=== PATIENT | female | born 1930 | race Caucasian/White ===

== ENCOUNTER 2017-07-24 10:54 | Inpatient (IN) | payer MEDICARE, MEDICAID ==
[2017-07-23 20:00] VITALS: BP 138/71
[~2017-07-24] VITALS: Ht 172.7 cm; Wt 54.0 kg
[~2017-07-24 10:54] MED LIST: FERR1TAB44 PO; LEVO750T21 PO; METR500T PO
--- NOTE | 2017-07-24 11:00 | NUR ---
bonita 878 from home c/o back pain after scrubbing floor last night. NAD noted, VSS, resp even and unlabored, pt was put on monitor, waiting for md raines.
[2017-07-24 12:05] LABS: BASOPHILS % (AUTO) 0.2 % (0.0-2.0); EOSINOPHILS % (AUTO) 0.1 % (0.0-6.0); HEMATOCRIT 35 % (33-45); HEMOGLOBIN 11.6 g/dL (11.5-14.8); LYMPHOCYTES # (AUTO) 0.9 /CMM (0.8-4.8); LYMPHOCYTES % (AUTO) 9.1 % (20.0-44.0); MEAN CORPUSCULAR HGB CONC 34 g/dl (31.0-36.0); MEAN CORPUSCULAR VOLUME 87 fL (82-100); MONOCYTES # (AUTO) 0.7 /CMM (0.1-1.30); MONOCYTES % (AUTO) 6.9 % (2.0-12.0); NEUTROPHILS # (AUTO) 7.9 /CMM (1.8-8.9); NEUTROPHILS % (AUTO) 83.7 % (43.0-81.0); PLATELET COUNT (AUTO) 225 /CMM (150-450); RDW COEFFICIENT OF VARIATION 12.2 (11.5-15.0); RED BLOOD CELL COUNT(AUTO) 3.98 MIL/uL (4.0-5.2); WHITE BLOOD COUNT (AUTO) 9.5 K/uL (4.3-11.0)
[2017-07-24] MEDS ORDERED: NAPROXEN 250 MG TABLET ONE (12:07)
--- NOTE | 2017-07-24 12:08 | NUR ---
urine sent to lab
[2017-07-24 12:15] LABS: CALCIUM, SERUM 8.5 mg/dL (8.5-10.1); CARBON DIOXIDE 30 mmol/L (21-32); CHLORIDE 102 mmol/L (98-107); GLUCOSE 109 mg/dL (74-106); POTASSIUM 4.4 mmol/L (3.5-5.1); SODIUM SERUM 136 mmol/L (136-145); UREA NITROGEN, BLOOD 20 mg/dL (7-18)
[2017-07-24] MEDS: NAPROXEN 500 MG TABLET PO SCH ×2 (12:16→20:53)
[2017-07-24 12:59] LABS: APPEARANCE,URINE CLEAR (CLEAR); BILIRUBIN,URINE NEGATIVE (NEGATIVE); BLOOD, URINE NEGATIVE Ery/uL (NEGATIVE); COLOR,URINE YELLOW (YELLOW); KETONES,URINE NEGATIVE (NEGATIVE); LEUKOCYTE ESTERASE ,URINE NEGATIVE (NEGATIVE); NITRITE, URINE NEGATIVE (NEGATIVE); PROTEIN,URINE NEGATIVE (NEGATIVE); UGLUCOSE NEGATIVE (NEGATIVE); UROBILINOGEN,URINE 0.2 EU/dL (0.2)
[2017-07-24] MEDS ORDERED: ACETAMINOPHEN ES 500 MG TABLET ONE (13:44)
[2017-07-24] MEDS ORDERED: ACETAMINOPHEN ES 500 MG TABLET PO ONE (14:00)
[2017-07-24 16:41] LABS: BAND % (MANUAL) 3 % (0.0-5.0); LYMPHOCYTES % (MANUAL) 12 % (16-48); MONOCYTES % (MANUAL) 4 % (0-11.0); NEUTROPHILS % (MANUAL) 81 (42-76)
[2017-07-24] MEDS ORDERED: Z GUARD REMEDY 2 OZ OINT TP PRN (17:00)
[2017-07-24] MEDS ORDERED: ONDANSETRON HCL/PF 4 MG/2 ML VIAL IVP PRN (17:00)
[2017-07-24] MEDS ORDERED: ZOLPIDEM TARTRATE 5 MG TABLET PO PRN (17:00)
[2017-07-24] MEDS ORDERED: ACETAMINOPHEN 325 MG TABLET PO PRN (17:00)
[2017-07-24] MEDS ORDERED: MAGNESIUM HYDROXIDE 30 ML UDC PO PRN (17:00)
[2017-07-24] MEDS ORDERED: MAG HYDROX/AL HYDROX/SIMETH 30 ML UDC PO PRN (17:00)
[2017-07-24] MEDS ORDERED: OXYB5TAB PO (17:08)
--- NOTE | 2017-07-24 17:40 | NUR ---
PT. ADMITTED TO . 312-1,DTR. PRESENT.QUESTIONS FOR ADMIT ASKED OF PT. AND DTR.VS STABLE.
[2017-07-24 18:00] VITALS: BP 137/68
--- NOTE | 2017-07-24 19:45 | NUR ---
MS/RN OPENING NOTES PT RECEIVED AWAKE, RESTING COMFORTABLY IN BED. A/OX3. JUST FINISHED DINNER. ON ROOM AIR, BREATHING EVEN AND UNLABORED. DENIES SOB AND BACK PAIN AT THIS TIME. STATES SHE FEELS COMFORTABLE. BILATERAL HEARING AIDS IN PLACE. IV TO LAC PATENT AND INTACT. ORIENTED PT TO ROOM AND CALL LIGHT. BED IN LOW/LOCKED POSITION WITH CALL LIGHT IN REACH AND SIDE RAILS UPX2. WILL CONTINUE TO MONITOR
[2017-07-24 20:00] VITALS: BP 138/71
--- NOTE | 2017-07-25 05:24 | NUR ---
MS/RN NOTES PT C/O OF LOWER BACK PAIN. SPOKE TO DR. VILLALOBOS AND NOTIFIED HIM THAT PT HAS A CODEINE ALLERGY, DOES NOT REMEMBER WHAT REACTION SHE HAD TO IT DUE TO IT BEING SO LONG AGO. MD MADE AWARE THAT NAPROXEN GIVEN IN ER WAS EFFECTIVE. PER MD, GIVE NORCO 5/325 DESPITE CODEINE ALLERGY. SPOKE TO PHARMACY TO VERIFY NORCO AND INFORMED THEM THAT MD SAID OKAY TO GIVE DESPITE CODEINE ALLERGY. PER PHARMACY, REMOVE CODEINE ALLERGY FROM PT'S CHART SO THAT THEY CAN VERIFY THE ORDER.
[2017-07-25] MEDS: HYDROCODONE/APAP 5/325MG 1 EACH TABLET PO PRN ×3 (05:50→17:50)
--- NOTE | 2017-07-25 07:01 | NUR ---
MS/RN CLOSING NOTES PT RESTING COMFORTABLY IN BED. A/OX3. ON ROOM AIR, BREATHING EVEN AND UNLABORED. DENIES SOB AND PAIN AT THIS TIME. HOT PACKS AND NORCO EFFECTIVE. ASSISTED WITH TURNING/REPOSITIONING TOLERATED. BILATERAL HEARING AIDS IN CUP AT BEDSIDE. IV TO LAC PATENT AND INTACT. NO SIGNIFICANT CHANGES OVERNIGHT. BED REMAINS IN LOW/LOCKED POSITION WITH CALL LIGHT IN REACH. SIDE RAILS UPX2. WILL ENDORSE TO DAY SHIFT RN NATALIE.
--- NOTE | 2017-07-25 07:13 | NUR ---
MS RN OPENING NOTE RECEIVED BEDSIDE SBAR REPORT ON THE PATIENT. PATIENT IS A/O X4, COOPERATIVE. AWAKE AND RESPONSIVE IN BED. BED IS LOCKED IN LOWEST POSITION, SIDE RAILS UP X2. PATIENT IS AMBULATORY, ORIENTED TO OWN ABILITIES. CURRENTLY UNABLE TO AMBULATE DUE TO BACK PAIN AGGRAVATED BY AMBULATION AND MOVEMENT. INDEPENDENT WITH BED MOBILITY. REPORTS PAIN BEING WELL CONTROLLED WITH ANALGESIC ADMINISTERED BY THE BILLET GRINDER NURSE. CHEST IS RISING EQUALLY BILATERALLY. SPO2 93% ON ROOM AIR. CALL LIGHT WITHIN REACH. EDUCATED TO CALL FOR ASSISTANCE USING THE CALL LIGHT AND VERBALIZED UNDERSTANDING. WILL CONTINUE TO ASSESS/MONITOR THROUGHOUT THE SHIFT.
[2017-07-25 07:50] LABS: BASOPHILS % (AUTO) 0.2 % (0.0-2.0); EOSINOPHILS % (AUTO) 0.5 % (0.0-6.0); HEMATOCRIT 35 % (33-45); HEMOGLOBIN 11.9 g/dL (11.5-14.8); LYMPHOCYTES % (AUTO) 12.3 % (20.0-44.0); MEAN CORPUSCULAR HGB CONC 34 g/dl (31.0-36.0); MEAN CORPUSCULAR VOLUME 88 fL (82-100); MONOCYTES # (AUTO) 0.8 /CMM (0.1-1.30); MONOCYTES % (AUTO) 9.8 % (2.0-12.0); NEUTROPHILS # (AUTO) 6.2 /CMM (1.8-8.9); NEUTROPHILS % (AUTO) 77.2 % (43.0-81.0); PLATELET COUNT (AUTO) 195 /CMM (150-450); RDW COEFFICIENT OF VARIATION 12.7 (11.5-15.0); RED BLOOD CELL COUNT(AUTO) 3.95 MIL/uL (4.0-5.2)
[2017-07-25 08:00] VITALS: BP 113/64
[2017-07-25 08:35] LABS: CHOLESTEROL 207 mg/dL (<200); HDL CHOLESTEROL 53 mg/dL (40-60); LDL 141 mg/dL (0-99); TRIGLYCERIDES 59 mg/dL (30-150)
[2017-07-25 08:37] LABS: CALCIUM, SERUM 8.4 mg/dL (8.5-10.1); CARBON DIOXIDE 28 mmol/L (21-32); CHLORIDE 102 mmol/L (98-107); GLUCOSE 107 mg/dL (74-106); PHOSPHORUS 3.2 mg/dL (2.5-4.9); POTASSIUM 4.3 mmol/L (3.5-5.1); SODIUM SERUM 139 mmol/L (136-145); UREA NITROGEN, BLOOD 19 mg/dL (7-18)
--- NOTE | 2017-07-25 09:10 | NUR ---
PER DR HANNON ORDER PAIN MANAGEMENT CONSULT
--- NOTE | 2017-07-25 10:00 | NUR ---
CAME TO REPOSITION THE PATIENT. PATIENT REFUSED TO BE REPOSITIONED STATING THAT PAIN IS AGGREVATED BY REPOSITIONING.
--- NOTE | 2017-07-25 13:25 | NUR ---
PATIENT REPORTED SEVERE PAIN IN LOW BACK. ANALGESIC PROVIDED PRESCRIBED.
--- NOTE | 2017-07-25 14:12 | NUR ---
PATIENT REFUSES TO BE REPOSITIONED STATING THAT PAIN IS AGGRAVATED BY REPOSITIONING.
[2017-07-25 16:00] VITALS: BP 115/61
--- NOTE | 2017-07-25 19:08 | NUR ---
MS RN CLOSING NOTE PATIENT IS A/O X4, COOPERATIVE. ASLEEP, EASILY AWAKEN IN BED. BED IS LOCKED IN LOWEST POSITION, SIDE RAILS UP X2. PATIENT IS AMBULATORY, ORIENTED TO OWN ABILITIES. CURRENTLY UNABLE TO AMBULATE DUE TO BACK PAIN AGGRAVATED BY AMBULATION AND MOVEMENT. REFUSED TO BE REPOSITIONED THROUGHOUT THE SHIFT. INDEPENDENT WITH BED MOBILITY. REPORTS PAIN BEING WELL CONTROLLED WITH ANALGESIC ADMINISTERED. CHEST IS RISING EQUALLY BILATERALLY. SPO2 94% ON ROOM AIR. CALL LIGHT WITHIN REACH. EDUCATED TO CALL FOR ASSISTANCE USING THE CALL LIGHT AND VERBALIZED UNDERSTANDING. WILL ENDORSE TO THE CORN HUSK BALER NURSE FOR NATALIE.
--- NOTE | 2017-07-25 19:30 | NUR ---
MS/RN OPENING NOTES PT RECEIVED ASLEEP, AROUSABLE TO NAME AND LIGHT TOUCH. A/OX3. ON ROOM AIR, BREATHING EVEN AND UNLABORED. DENIES SOB AND PAIN AT THIS TIME. NORCO HAS BEEN EFFECTIVE DURING SHIFT. ABLE TO MOVE SLIGHTLY ON HER OWN, MOVEMENT EXACERBATES BACK PAIN/SPASMS. IV TO LAC PATENT AND INTACT. WILL RESUME EATING DINNER. CONSULT WITH DR BINGHAM TOMORROW FOR PAIN MANAGEMENT. DC PLANNING TO SNF OR REHAB TOMORROW. BED IN LOW/LOCKED POSITION WITH CALL LIGHT IN REACH. SIDE RAILS UPX2. WILL CONTINUE TO MONITOR
[2017-07-25 20:00] VITALS: BP 132/70
--- NOTE | 2017-07-25 21:00 | NUR ---
MS/RN NOTES REPOSITIONED PT TO RIGHT SIDE. HEATING PAD PROVIDED TO LOWER BACK.
--- NOTE | 2017-07-26 06:51 | NUR ---
MS/RN CLOSING NOTES PT RESTING COMFORTABLY IN BED. A/OX3. ON ROOM AIR, BREATHING EVEN AND UNLABORED. ABLE TO MAKE NEEDS KNOWN. BILATERAL HEARING AIDS IN DENTURE CUP AT BEDSIDE. TURNED/REPOSITIONED 4X DURING SHIFT. PT RELUCTANT TO TURN DUE TO BACK SPASMS. ENCOURAGED TOLERATED. MEPILEX APPLIED TO SACRUM FOR PROTECTION. IV TO LAC PATENT AND INTACT. HEATING PADS PROVIDED FOR PAIN. PT SLEPT WELL DURING THE NIGHT, HOWEVER HAD ONE EPISODE OF "HALLUCINATIONS" AND REFUSED NORCO THEREAFTER. PT REPOSITIONED, HEATING PAD PROVIDED AND MADE COMFORTABLE, ABLE TO SLEEP REST OF THE SHIFT WITHOUT PAIN. CONSULT WITH DR. BINGHAM TODAY. D/C PLANNING TO SNF OR REHAB. BED IN LOW/LOCKED POSITION WITH CALL LIGHT IN REACH. SIDE RAILS UPX2 AND BED ALARM ON FOR SAFETY. WILL CONTINUE TO MONITOR
[2017-07-26 06:58] LABS: CALCIUM, SERUM 8.5 mg/dL (8.5-10.1); CARBON DIOXIDE 29 mmol/L (21-32); CHLORIDE 102 mmol/L (98-107); CREATININE 0.9 mg/dL (0.6-1.3); GLUCOSE 105 mg/dL (74-106); POTASSIUM 4.4 mmol/L (3.5-5.1); SODIUM SERUM 137 mmol/L (136-145); UREA NITROGEN, BLOOD 20 mg/dL (7-18)
--- NOTE | 2017-07-26 07:49 | NUR ---
MS RN OPENING NOTES Patient was seen sleeping comfortably in bed, awakes to name, breathing is nonlabored on RA, no signs of acute distress. Peripheral IV in left AC 20g SL. Bed is in low/locked position, two side rails up, call nice within reach. Will continue to monitor.
[2017-07-26 07:50] LABS: BASOPHILS % (AUTO) 0.2 % (0.0-2.0); EOSINOPHILS % (AUTO) 0.5 % (0.0-6.0); HEMATOCRIT 34 % (33-45); HEMOGLOBIN 11.9 g/dL (11.5-14.8); LYMPHOCYTES # (AUTO) 1.1 /CMM (0.8-4.8); LYMPHOCYTES % (AUTO) 11.3 % (20.0-44.0); MEAN CORPUSCULAR HGB CONC 35 g/dl (31.0-36.0); MEAN CORPUSCULAR VOLUME 86 fL (82-100); MONOCYTES # (AUTO) 0.6 /CMM (0.1-1.30); MONOCYTES % (AUTO) 6.9 % (2.0-12.0); NEUTROPHILS # (AUTO) 7.7 /CMM (1.8-8.9); NEUTROPHILS % (AUTO) 81.1 % (43.0-81.0); PLATELET COUNT (AUTO) 184 /CMM (150-450); RDW COEFFICIENT OF VARIATION 12.6 (11.5-15.0); RED BLOOD CELL COUNT(AUTO) 3.95 MIL/uL (4.0-5.2); WHITE BLOOD COUNT (AUTO) 9.4 K/uL (4.3-11.0)
[2017-07-26 08:00] VITALS: BP 146/79
[2017-07-26] MEDS ORDERED: NAPROXEN 500 MG TABLET PO PRN (14:00)
--- NOTE | 2017-07-26 15:30 | NUR ---
MS RN NOTE - temperature Patient was found to have a temperature of 102.5 F (checked twice). Administered prn naproxen and cooling measures. Notified Dr. Hubbard and received order for blood cultures. Will reassess patient in one hour.
[2017-07-26 16:00] VITALS: BP 152/89
[2017-07-26] MEDS ORDERED: NAPROXEN 500 MG TABLET PO SCH (17:00)
--- NOTE | 2017-07-26 17:00 | NUR ---
MS RN NOTE - Temp reassessment Patient temperature 102.0 F at 1430. Continued cooling measures. Reassessed temperature 30 minutes later at 1700, temperature 101.3 F. Will administer prn Tylenol.
--- NOTE | 2017-07-26 18:20 | NUR ---
MS RN CLOSING NOTES Patient is resting comfortably in bed AAOx4, breathing on RA nonlabored/no SOB, no signs of acute distress. Temperature rechecked - dropped to 99.3 F (from 102; see previous notes) after administration of Tylenol; blood cultures are pending. Patient's back pain is currently well controlled on naproxen, heat therapy, and minimal activity/movement. Patient is still due for consult with pain management, as well as arrangements for rehab or SNF to increase functional ability. Patient has left AC IV 20g SL. Bed is in low/locked position, two side rails up, call nice within reach. All treatments and orders carried out. Patient care to be endorsed to product builder nurse.
--- NOTE | 2017-07-26 19:12 | NUR ---
MS/RN OPENING NOTES PT RECEIVED AWAKE, RESTING COMFORTABLY IN BED. ON ROOM AIR, BREATHING EVEN AND UNLABORED. DENIES SOB OR PAIN AT THIS TIME, LONG SHE IS LAYING STILL. IV TO LAC PATENT AND INTACT. PT WITH TEMPERATURE TODAY, WILL MONITOR FOR FEVERS. BED IN LOW/LOCKED POSITION WITH CALL LIGHT IN REACH. SIDE RAILS UPX2 WITH BED ALARM ON FOR SAFETY. WILL CONTINUE TO MONITOR
--- NOTE | 2017-07-26 19:15 | NUR ---
MS/RN NOTES DR. BINGHAM AT BEDSIDE TO ASSESS PATIENT
[2017-07-26 20:00] VITALS: BP 143/76
[2017-07-26] MEDS ORDERED: HYDROCODONE/APAP 5/325MG 1 EACH TABLET PO PRN (21:00)
[2017-07-26] MEDS: ACETAMINOPHEN 325 MG TABLET PO SCH (23:32)
[2017-07-27] MEDS: ACETAMINOPHEN 325 MG TABLET PO SCH ×3 (06:51→20:48)
--- NOTE | 2017-07-27 07:11 | NUR ---
MS/RN CLOSING NOTES PT ASLEEP, EASILY AROUSABLE TO NAME. A/OX4. BILATERAL HEARING AIDS AT BEDSIDE. IV TO LAC PATENT AND INTACT. SCHEDULED TYLENOL ADMINISTERED LATE, PT HAD TYLENOL AT APPROX 1700 FOR TEMPERATURE. TOO CLOSE TO ADMINISTER SCHEDULED. PAIN MANAGED WELL WITH TYLENOL. HAS MORE MOVEMENT IN BED. KEPT PT COMFORTABLE DURING SHIFT. ALL NEEDS MET. TURNED/REPOSITIONED Q2H. BED IN LOW/LOCKED POSITION WITH CALL LIGHT IN REACH. SIDE RAILS UPX2. ENDORSED TO DAY SHIFT RACHANA ESTRADA.
[2017-07-27 08:00] VITALS: BP 119/67
--- NOTE | 2017-07-27 08:00 | NUR ---
MS RN OPENING NOTES Patient was seen resting in bed AAOx4, breathing comfortably on RA with no signs of acute distress. Patient's left AC IV (SL) appeared to be coming out, therefore it was removed. Heat pack was applied to patient's lower back; patient does not want pain medication at this time. Bed is in low/locked position, two side rails up, call nice within reach. Will continue to monitor.
[2017-07-27 13:27] LABS: BASOPHILS % (AUTO) 0.1 % (0.0-2.0); CALCIUM, SERUM 8.7 mg/dL (8.5-10.1); CARBON DIOXIDE 32 mmol/L (21-32); CHLORIDE 103 mmol/L (98-107); EOSINOPHILS % (AUTO) 0.2 % (0.0-6.0); GLUCOSE 175 mg/dL (74-106); HEMATOCRIT 36 % (33-45); HEMOGLOBIN 11.8 g/dL (11.5-14.8); LYMPHOCYTES # (AUTO) 0.6 /CMM (0.8-4.8); LYMPHOCYTES % (AUTO) 7.2 % (20.0-44.0); MEAN CORPUSCULAR HGB CONC 33 g/dl (31.0-36.0); MEAN CORPUSCULAR VOLUME 88 fL (82-100); MONOCYTES # (AUTO) 0.4 /CMM (0.1-1.30); NEUTROPHILS # (AUTO) 7.6 /CMM (1.8-8.9); NEUTROPHILS % (AUTO) 87.5 % (43.0-81.0); PLATELET COUNT (AUTO) 214 /CMM (150-450); POTASSIUM 3.7 mmol/L (3.5-5.1); RDW COEFFICIENT OF VARIATION 13.2 (11.5-15.0); RED BLOOD CELL COUNT(AUTO) 4.07 MIL/uL (4.0-5.2); SODIUM SERUM 141 mmol/L (136-145); UREA NITROGEN, BLOOD 23 mg/dL (7-18); WHITE BLOOD COUNT (AUTO) 8.6 K/uL (4.3-11.0)
[2017-07-27 14:15] LABS: APPEARANCE,URINE CLOUDY (CLEAR); BILIRUBIN,URINE NEGATIVE (NEGATIVE); BLOOD, URINE TRACE-INTA Ery/uL (NEGATIVE); COLOR,URINE YELLOW (YELLOW); KETONES,URINE NEGATIVE (NEGATIVE); LEUKOCYTE ESTERASE ,URINE 1+ (NEGATIVE); NITRITE, URINE POSITIVE (NEGATIVE); PROTEIN,URINE TRACE mg/dl (NEGATIVE); UGLUCOSE NEGATIVE (NEGATIVE); UROBILINOGEN,URINE 0.2 EU/dL (0.2)
[2017-07-27 16:00] VITALS: BP 127/67
[2017-07-27 17:19] LABS: BACTERIA,URINE Many /HPF (None Seen); RBC,URINE 0-2 /HPF (0-2); SQUAMOUS EPITHELIAL CELL,UR Few /HPF (None Seen); WBC,URINE 20-25 /HPF (0-3)
--- NOTE | 2017-07-27 19:00 | NUR ---
MS RN CLOSING NOTES Patient is comfortable in bed AAOx4, breathing on RA with no SOB, no signs of acute distress, vitals WNL. Patient was seen this afternoon by Dr. Jones from Pain Management - Tylenol q8h, Celebrex as needed, heat therapy, PT tomorrow. Bed is low/locked position, two side rails up, call nice within reach. All patient needs and orders carried out. Patient care to be endorsed to predatory game hunter nurse.
--- NOTE | 2017-07-27 19:20 | NUR ---
MS/RN NOTES RECEIVED PT. LYING IN BED. PT. IS RESTING COMFORTABLY WITH EYES CLOSED. PT. IS EASILY AROUSABLE TO NAME. AWAKE, ALERT AND ORIENTED X4. BREATHING EVEN AND UNLABORED ON ROOM AIR. NO SOB, RESPIRATORY DISTRESS OR COMPLAINTS OF PAIN NOTED AT THIS TIME. PT. WITH RIGHT FOREARM 22 GAUGE IV SALINE LOCK PRESENT, PATENT AND INTACT. BED LOCKED AND IN LOWEST POSITION, SIDE RAILS UP X3, BED ALARM ON, CALL LIGHT WITHIN REACH, WILL CONTINUE TO MONITOR.
[2017-07-27 20:00] VITALS: BP 173/100
--- NOTE | 2017-07-27 22:05 | NUR ---
MS/RN NOTES CALLED [facility] AND NOTIFIED [facility] PROJECT ARCHITECT HANDY MAN CAPARO PT. UA RESULTED AND WAS POSITIVE FOR BACTERIA. PT. CURRENT WBC IS 8.6, URINE CULTURE AND BLOOD CULTERES ARE PENDING. PT. IS NOT RECEIVING ANTIBIOTICS AT THIS TIME. PT. IS CURRENTLY AFEBRILE, VITAL SIGNS STABLE. PER HANDY MAN CAPARO "I WILL LOOK UP THE PATIENT AND PLACE ORDERS FOR ANTIBIOTICS". WILL CONTINUE TO MONITOR.
[2017-07-27] MEDS ORDERED: LEVOFLOXACIN 500 MG /D5W 100ML 100 ML IV ONE (23:25)
[2017-07-28] MEDS: LEVOFLOXACIN 500 MG /D5W 100ML 500 MG in PREMIX 1 EA IV SCH ×2 (00:14→23:22)
[2017-07-28] MEDS: ACETAMINOPHEN 325 MG TABLET PO SCH ×3 (03:43→20:59)
--- NOTE | 2017-07-28 03:43 | NUR ---
MS/RN NOTES PT. COMPLAINING OF SEVERE PAIN. OFFERED PT. NORCO FOR SEVERE PAIN ORDERED. PT. REFUSED AND STATED "I WILL NEVER TAKE NORCO AGAIN, THEY GAVE IT TO ME BEFORE AND I HAD TERRIBLE HALLUCINATIONS". OFFERED PT. CELEBREX MEDICATION ORDERED. PT. REFUSED CELEBREX MEDICATION STATING " THAT DOESN'T WORK FOR ME IT TAKES TOO LONG". PATIENT REQUESTED ALEVE MEDICATION STATING THAT SHE RECEIVED IT EARLIER AND HAS BEEN FOR DAYS. PER PT. EMAR PT. HAS NOT RECEIVED ALEVE AND IT IS NOT LISTED A HOME MEDICATION. PT. NOTIFIED THAT SHE HAS NOT BEEN RECEIVING ALEVE AND THE ONLY SCHEDULED MEDICATION SHE HAS BEEN GETTING FOR PAIN HAS BEEN TYLENOL. PT. STATES OK I WANT THE TYLENOL RIGHT NOW. WILL ADMINISTER TO PT. TYLENOL ORDERED. WILL CONTINUE TO MONITOR.
--- NOTE | 2017-07-28 06:35 | NUR ---
MS/RN NOTES PT. IS LYING IN BED RESTING. BREATHING EVEN AND UNLABORED ON ROOM AIR. NO SOB, RESPIRATORY DISTRESS OR COMPLAINTS OF PAIN NOTED AT THIS TIME. PT. WITH RIGHT FOREARM 22 GAUGE IV SALINE LOCK PRESENT, PATENT AND INTACT. ALL PT. NEEDS MET. PT. OFFLOADED, TURNED AND REPOSITIONED TOLERATED. BED LOCKED AND IN LOWEST POSITION, SIDE RAILS UP X3, BED ALARM ON, CALL LIGHT WITHIN REACH, WILL ENDORSE TO DAYSHIFT NURSE FOR CONTINUITY OF CARE.
--- NOTE | 2017-07-28 07:30 | NUR ---
MSRN OPENING NOTES. PT RECEIVED A&0X3, RESTING IN BED. PT TOLERATING ROOM AIR WITHOUT SOB AND DENIES PAIN AT THIS TIME- PT REPORTS SEVERE PAIN WHEN MOVING. PT WITH IVC AT R FA INTACT AND SL. PT BED IN LOWEST LOCKED POSITION WITH HANDRAILSX2 AND CALL BECK WITHIN REACH, BED ALARM ENGAGED. PT BRIEFED ON TODAY'S POC AND IS WITHOUT CONCERN OR COMPLAINT AT THIS TIME.
[2017-07-28] MEDS: CELECOXIB 100 MG CAPSULE PO PRN (09:49)
[2017-07-28] MEDS: LIDOCAINE 5% (PATCH) 1 EA PATCH TP SCH (12:11)
--- NOTE | 2017-07-28 13:30 | NUR ---
MSRN NOTES. PT NOW AGREEING TO CT SCAN. RADIOLOGY INFORMED.
[2017-07-28 16:00] VITALS: BP 149/79
[2017-07-28] MEDS ORDERED: BISACODYL SUPP (10 MG) 10 MG/SUPP.RECT SUPP.RECT RC ONE (18:00)
[2017-07-28] MEDS: DOCUSATE SODIUM 100 MG CAPSULE PO SCH (18:44)
--- NOTE | 2017-07-28 18:52 | NUR ---
MSRN CLOSING NOTES. PT REMAINS A&0X3, INTERMITTENT CONFUSION NOTED THROUGHOUT SHIFT. PT RESPONDS TO REORIENTATION. PT WITH FAMILY AT BEDSIDE. PT TOLERATING ROOM AIR WITHOUT SOB AND REPORTS CURRENT PAIN MANAGEMENT ADEQUATE. PT WITH IVC AT R FA INTACT AND SL. PT BED IN LOWEST LOCKED POSITION WITH HANDRAILSX2 AND CALL BECK WITHIN REACH, BED ALARM ENGAGED. ALL DAY NRUSE DUTIES ATTENDED TO AND PT IS WITHOUT CONCERN OR COMPLAINT AT THIS TIME. WILL ENDORSE TO NIGHT NURSE AT BEDSIDE FOR NATALIE.
--- NOTE | 2017-07-28 19:26 | NUR ---
POLY - PT ACCEPTING LAB DRAWS NOW. LAB CALLED.
--- NOTE | 2017-07-28 19:35 | NUR ---
MS/RN NOTES RECEIVED PT. LYING IN BED. PT. IS AWAKE, ALERT AND ORIENTED X 3 WITH PERIODS OF CONFUSION NOTED. BREATHING EVEN AND UNLABORED ON ROOM AIR. NO SOB, RESPIRATORY DISTRESS OR COMPLAINTS OF PAIN NOTED AT THIS TIME. PT. WITH RIGHT FOREARM 22 GAUGE IV SALINE LOCK PRESENT, PATENT AND INTACT. BED LOCKED AND IN LOWEST POSITION, SIDE RAILS UP X3, BED ALARM ON, CALL LIGHT WITHIN REACH, WILL CONTINUE TO MONITOR.
[2017-07-28 19:57] LABS: BASOPHILS % (AUTO) 0.1 % (0.0-2.0); EOSINOPHILS % (AUTO) 0.2 % (0.0-6.0); HEMATOCRIT 34 % (33-45); HEMOGLOBIN 11.6 g/dL (11.5-14.8); LYMPHOCYTES # (AUTO) 0.8 /CMM (0.8-4.8); LYMPHOCYTES % (AUTO) 9.6 % (20.0-44.0); MEAN CORPUSCULAR HGB CONC 34 g/dl (31.0-36.0); MEAN CORPUSCULAR VOLUME 87 fL (82-100); MONOCYTES # (AUTO) 0.6 /CMM (0.1-1.30); MONOCYTES % (AUTO) 6.9 % (2.0-12.0); NEUTROPHILS # (AUTO) 7.2 /CMM (1.8-8.9); NEUTROPHILS % (AUTO) 83.2 % (43.0-81.0); PLATELET COUNT (AUTO) 214 /CMM (150-450); RDW COEFFICIENT OF VARIATION 12.4 (11.5-15.0); RED BLOOD CELL COUNT(AUTO) 3.89 MIL/uL (4.0-5.2); WHITE BLOOD COUNT (AUTO) 8.6 K/uL (4.3-11.0)
[2017-07-28 20:00] VITALS: BP 146/82
[2017-07-28 20:40] LABS: CALCIUM, SERUM 8.7 mg/dL (8.5-10.1); CARBON DIOXIDE 30 mmol/L (21-32); CHLORIDE 105 mmol/L (98-107); CREATININE 1.1 mg/dL (0.6-1.3); GLUCOSE 114 mg/dL (74-106); POTASSIUM 4.1 mmol/L (3.5-5.1); SODIUM SERUM 141 mmol/L (136-145); UREA NITROGEN, BLOOD 27 mg/dL (7-18)
[2017-07-29] MEDS: ACETAMINOPHEN 325 MG TABLET PO SCH ×3 (04:59→21:07)
--- NOTE | 2017-07-29 06:39 | NUR ---
MS/RN NOTES PT. IS LYING IN BED RESTING. BREATHING EVEN AND UNLABORED ON ROOM AIR. NO SOB, RESPIRATORY DISTRESS OR COMPLAINTS OF PAIN NOTED AT THIS TIME. PT. WITH RIGHT FOREARM 22 GAUGE IV SALINE LOCK PRESENT, PATENT AND INTACT. ALL PT. NEEDS MET. BED LOCKED AND IN LOWEST POSITION, SIDE RAILS UP X3, BED ALARM ON, CALL LIGHT WITHIN REACH, WILL ENDORSE TO DAYSHIFT NURSE FOR CONTINUITY OF CARE.
--- NOTE | 2017-07-29 07:25 | NUR ---
MSRN OPENING NOTES. PT RECEIVED A&0X3, RESTING IN BED WAITING FRO BREAKFAST. PT TOLERATING ROOM AIR WITHOUT SOB AND DENIES PAIN AT THIS TIME. PT WITH IVC AT R FA INTACT AND SALINE FLUSH PATENT. PT BED IN LOWEST LOCKED POSITION WITH HANDRAILSX2 AND CALL BECK WITHIN REACH, BED ALARM ENGAGED. PT BRIEFED ON TODAY'S POC AND IS WITHOUT CONCERN OR COMPLAINT AT THIS TIME.
[2017-07-29 08:00] VITALS: BP 158/76
[2017-07-29] MEDS: DOCUSATE SODIUM 100 MG CAPSULE PO SCH ×2 (09:05→17:40)
[2017-07-29] MEDS: CELECOXIB 100 MG CAPSULE PO PRN (09:08)
[2017-07-29 11:03] LABS: CALCIUM, SERUM 8.6 mg/dL (8.5-10.1); CARBON DIOXIDE 28 mmol/L (21-32); CHLORIDE 103 mmol/L (98-107); CREATININE 1.1 mg/dL (0.6-1.3); GLUCOSE 192 mg/dL (74-106); POTASSIUM 4.1 mmol/L (3.5-5.1); SODIUM SERUM 139 mmol/L (136-145); UREA NITROGEN, BLOOD 23 mg/dL (7-18)
[2017-07-29] MEDS: LIDOCAINE 5% (PATCH) 1 EA PATCH TP SCH (11:27)
[2017-07-29 11:39] LABS: BASOPHILS % (AUTO) 0.2 % (0.0-2.0); EOSINOPHILS % (AUTO) 0.7 % (0.0-6.0); HEMATOCRIT 33 % (33-45); HEMOGLOBIN 11.1 g/dL (11.5-14.8); LYMPHOCYTES # (AUTO) 0.9 /CMM (0.8-4.8); LYMPHOCYTES % (AUTO) 10.2 % (20.0-44.0); MEAN CORPUSCULAR HGB CONC 34 g/dl (31.0-36.0); MEAN CORPUSCULAR VOLUME 87 fL (82-100); MONOCYTES # (AUTO) 0.7 /CMM (0.1-1.30); MONOCYTES % (AUTO) 7.6 % (2.0-12.0); NEUTROPHILS % (AUTO) 81.3 % (43.0-81.0); PLATELET COUNT (AUTO) 215 /CMM (150-450); RED BLOOD CELL COUNT(AUTO) 3.76 MIL/uL (4.0-5.2); WHITE BLOOD COUNT (AUTO) 8.7 K/uL (4.3-11.0)
[2017-07-29] MEDS ORDERED: POLYETHYLENE GLYCOL 3350 17 GM POWD.PACK PO PRN (13:00)
[2017-07-29 16:00] VITALS: BP 133/70
--- NOTE | 2017-07-29 18:14 | NUR ---
MSRN CLOSING NOTES. PT REMAINS A&0X3, RESTING IN BED WITH DINNER. PT TOLERATING ROOM AIR WITHOUT SOB AND DENIES PAIN AT THIS TIME. PT NOTED WITH INTERMITTENT CONFUSION/FORGETFULNESS BUT RESPONDS WELL TO REORIENTATION. PT WITH IVC AT R FA INTACT AND SALINE FLUSH PATENT. PT BED IN LOWEST LOCKED POSITION WITH HANDRAILSX2 AND CALL BECK WITHIN REACH, BED ALARM ENGAGED. ALL DAY NURSE DUTIES ATTENDED TO AND PT IS WITHOUT CONCERN OR COMPLAINT AT THIS TIME. WILL ENDORSE TO NIGHT NURSE FOR NATALIE.
--- NOTE | 2017-07-29 19:15 | NUR ---
MS/KNITTING MACHINE TENDER; RECEIVED PT IN BED AWAKE, ALERT AND ORIENTED. BED ON LOWER POSITION AND LOCKED FOR SAFETY. SIDE RAILS X2 ARE UP FOR SAFETY. BREATHING NON LABORED. HL ON RWA INTACT AND PATENT , FLUSHED WITH NS. CONTINUE TO MONITOR.
[2017-07-29 20:00] VITALS: BP 160/100
--- NOTE | 2017-07-29 20:00 | NUR ---
MS/KIER HAND; RE CHECKED BP LA 160 /100. DOMITILA COOMBS NP MADE AWARE OF PT'S BP NO ORDER.
[2017-07-29] MEDS ORDERED: CEFTRIAXONE 1 G in IV NS 0.9% 50 ML IV SCH (21:00)
--- NOTE | 2017-07-29 21:00 | NUR ---
MS/REJECTED ITEMS CLERK; DOMITILA COOMBS NP TALKING WITH THE PT IN THE ROOM. SHE DC LEVAQUIN AND CHANGED TO ROCEPHIN IV Q 24.
--- NOTE | 2017-07-29 21:25 | NUR ---
MS/ARNOL; LAB. TECH EVELYN CAME TO DRAW FOR BLOOD CULTURE SHE TOLD THE LAB. TECH TO CANCEL AND DO IT TOMORROW MORNING.
--- NOTE | 2017-07-29 22:30 | NUR ---
MS/IMAGING SERVICES DIRECTOR; PT ENDORSED TO RACHANA LANG FOR CONTINUITY OF CARE.
[2017-07-30 00:30] VITALS: BP 149/81
[2017-07-30] MEDS ORDERED: CLONIDINE HCL 0.1 MG TABLET ONE (00:42)
[2017-07-30 00:49] VITALS: BP_SYST 174
[2017-07-30] MEDS ORDERED: CLONIDINE HCL 0.1 MG TABLET PO PRN (01:00)
--- NOTE | 2017-07-30 01:00 | NUR ---
ms/rn notes spoke with Dr. rojo for Bp > 171/ 60. new order given as ordered. patient medicated with Clonidine 0.1 mg po as needed for Sbp > 171/60. will continue to monitor.
[2017-07-30] MEDS: ACETAMINOPHEN 325 MG TABLET PO SCH ×2 (05:45→12:14)
--- NOTE | 2017-07-30 08:00 | NUR ---
m/s crew person: initial assessment received pt in bed asleep, but easily arousable. pt refused to be examined and refused vital signs, stated, "i don't want to be bothered, i want to rest, i didn't sleep well last night." denies any pain or discomfort. instructed to call for assistance. will continue to monitor.
[2017-07-30] MEDS: DOCUSATE SODIUM 100 MG CAPSULE PO SCH ×2 (08:50→17:26)
[2017-07-30] MEDS ORDERED: DOCU-141 PO (10:27)
[2017-07-30] MEDS ORDERED: CLON0.1T14 PO (10:27)
[2017-07-30] MEDS ORDERED: POLY17PO4 PO (10:27)
[2017-07-30] MEDS ORDERED: CEFT1FRO2 IV (10:27)
[2017-07-30] MEDS ORDERED: HYDR-3972 PO (10:27)
[2017-07-30] MEDS ORDERED: ACET325T53 PO (10:27)
[2017-07-30] MEDS ORDERED: LIDO30AD10 TP (10:27)
[2017-07-30] MEDS ORDERED: CELE100C PO (10:27)
--- NOTE | 2017-07-30 10:30 | NUR ---
m/s chest painting leader: md visit recevied order from den[facility] ([facility]) with order with Discharge instructions: Discharge to [facility], Continue PT, Continue antibiotics per ID recommendations. order acknowledged. [facility] pt made aware.
--- NOTE | 2017-07-30 10:50 | NUR ---
m/s contact assembler: notes dora (daughter) [phone] notified and made aware re: discharge to [facility], spoke to her over the phone. pt made aware.
--- NOTE | 2017-07-30 11:30 | NUR ---
m/s associate manager affiliate marketing: notes pt for discharge this afternoon/evening. pt called and looking for her hearing aid, stated, "last time i saw them was yesterday, probably i left it in the tray." checked belongings list and elo hearing aid listed on the property. all drawers and linens, and table check, but unable to find hearing aids. placed a call to dora (daughter) and ask her if by chance she the hearing aid, stated, "the right one was on the blue container, and the left one, she is wearing it." checked one more time, but did not see any blue container. f/u made to dietary dept and environmental services, but no hearing aid turned in. cn aware.
[2017-07-30] MEDS: LIDOCAINE 5% (PATCH) 1 EA PATCH TP SCH (12:14)
--- NOTE | 2017-07-30 14:45 | NUR ---
m/s public health aides teacher: notes f/u made once more to evs and dietary dept and no hearing aid turned in. dora (daughter) notified and made aware that hospital will follow up with the [employer] [facility] re: hearing aid, stated, "call me and not my mom." also informed pt that hospital will follow up with the [employer] [facility].
--- NOTE | 2017-07-30 16:00 | NUR ---
m/s plant utilities engineer: notes pt awaken and having late lunch at this time. for d'c today at 1700, pt aware. instructed to call for assistance. will continue to monitor.
--- NOTE | 2017-07-30 16:15 | NUR ---
m/s air plant engineer: notes daughter visiting at this time and informed her mom that she is insured with her hearing aids as stated.
--- NOTE | 2017-07-30 16:50 | NUR ---
m/s plastic panel installer: notes pm care and incontinent care rendered prior to discharge, pt refused skin photos. awaiting for ambulance. needs attended. will continue to monitor.
--- NOTE | 2017-07-30 17:15 | NUR ---
m/s head of mobile: notes ambulance here and report given to one of the crew. report given to [facility] for continuity of care. h/l removed with tip intact with no bleeding, no redness, and no swelling noted. pt request for pain medication before d'c, but no norco due to adverse reactions as stated.
[2017-07-30] MEDS: CELECOXIB 100 MG CAPSULE PO PRN (17:26)
--- NOTE | 2017-07-30 17:38 | NUR ---
m/s cardroom attendant: discharged discharged to [facility] via ambulance in stable condition with all d'c papers and 1 ring.
== END 2017-07-30 18:02 | DRG 871 ==
LOC: ER 10:55 → MED 16:56
PROVIDERS: ADMIT Family Medicine; ATTEND Family Medicine
DX: A41.9 Sepsis, unspecified organism (principal); N17.0 Acute kidney failure with tubular necrosis; N39.0 Urinary tract infection, site not specified; J21.9 Acute bronchiolitis, unspecified; M47.816 Spondylosis without myelopathy or radiculopathy, lumbar region; E86.9 Volume depletion, unspecified; I10 Essential (primary) hypertension; B96.20 Unspecified Escherichia coli [E. coli] as the cause of diseases classified elsewhere; F41.9 Anxiety disorder, unspecified; K59.00 Constipation, unspecified; Z87.440 Personal history of urinary (tract) infections; Z90.710 Acquired absence of both cervix and uterus; R73.9 Hyperglycemia, unspecified; M51.36 Other intervertebral disc degeneration, lumbar region; M46.96 Unspecified inflammatory spondylopathy, lumbar region; M81.0 Age-related osteoporosis without current pathological fracture
CPT/HCPCS: 36415; 71045-TC; 71250-TC; 72131-TC; 80048-TC; 80061-TC; 81000-TC; 82550-TC; 83605-TC; 83735-TC; 84100-TC; 85025-TC; 87040-TC; 87081-TC; 87086-TC; 87186-TC; 97110-TC; 97116-TC; 97530-TC; A4216; A4606; J0696; J1956; J7050; Z7610

== ENCOUNTER 2018-12-07 23:55 | Inpatient (IN) | payer MEDICARE, OTHER ==
[~2018-12-07] VITALS: Ht 152.4 cm; Wt 54.0 kg
[~2018-12-07 23:55] MED LIST changes: +ACET325T53 PO; +CEFT1FRO2 IV; +CELE100C PO; +CLON0.1T14 PO; +DOCU-141 PO; -FERR1TAB44 PO; +HYDR-3972 PO; -LEVO750T21 PO; +LIDO30AD10 TP; -METR500T PO; +POLY17PO4 PO
--- NOTE | 2018-12-08 01:44 | NUR ---
GOVERNMENT GUARD AT BEDSIDE FOR BLOOD DRAW.
[2018-12-08 01:53] LABS: BASOPHILS % (AUTO) 0.8 % (0.0-2.0); EOSINOPHILS % (AUTO) 0.8 % (0.0-6.0); HEMATOCRIT 45 % (33-45); HEMOGLOBIN 15.2 g/dL (11.5-14.8); LYMPHOCYTES % (AUTO) 17.1 % (20.0-44.0); MEAN CORPUSCULAR HGB CONC 34 g/dl (31.0-36.0); MEAN CORPUSCULAR VOLUME 88 fL (82-100); MONOCYTES # (AUTO) 0.6 /CMM (0.1-1.30); MONOCYTES % (AUTO) 9.4 % (2.0-12.0); NEUTROPHILS # (AUTO) 4.3 /CMM (1.8-8.9); NEUTROPHILS % (AUTO) 71.9 % (43.0-81.0); PLATELET COUNT (AUTO) 240 /CMM (150-450); RED BLOOD CELL COUNT(AUTO) 5.08 MIL/uL (4.0-5.2); WHITE BLOOD COUNT (AUTO) 5.9 K/uL (4.3-11.0)
[2018-12-08] MEDS ORDERED: NA PHOS,M-B/NA PHOS,DI-BA 1 EA ENEMA RC ONE ×2 (02:00→02:02)
[2018-12-08] MEDS ORDERED: MAGNESIUM HYDROXIDE 30 ML UDC PO ONE (02:00)
[2018-12-08 02:02] LABS: POTASSIUM 4.1 mmol/L (3.5-5.1)
[2018-12-08] MEDS ORDERED: MAGNESIUM HYDROXIDE 30 ML UDC ONE (02:03)
--- NOTE | 2018-12-08 02:03 | NUR ---
FLEETS ENEMA PERFORMED, SMALL SOFT BROWN STOOL W/ LIQUID OUTPUT NOTED. PT REPORT CONTINUES TO FEEL IMPACTED. DR. URIBNA NOTIFIED.
[2018-12-08 02:08] LABS: ALBUMIN 3.8 g/dL (3.4-5.0); BILIRUBIN,DIRECT 0.1 mg/dL (0.0-0.2); BILIRUBIN,TOTAL 0.6 mg/dL (0.2-1.0); TOTAL PROTEIN, SERUM 7.9 g/dL (6.4-8.2)
--- NOTE | 2018-12-08 02:49 | NUR ---
PT REFUSING CT SCAN. DR. URBINA NOTIFIED.
[2018-12-08] MEDS ORDERED: MINERAL OIL 133 ML (PYXIS) 1 EA ENEMA RC ONE ×2 (02:58→03:30)
--- NOTE | 2018-12-08 03:11 | NUR ---
MINERAL OIL FLEETS ENEMA PERFORMED, SMALL SOFT BROWN STOOL W/ LIQUID OUTPUT NOTED. PT TOLERATED PROCEDURE WELL. PT STATES SHE STILL FEELS CONSTIPATED. DR. URBINA NOTIFIED.
--- NOTE | 2018-12-08 03:41 | NUR ---
PT ON BSC, SMALL SOFT BROWN STOOL NOTED, PT REPORT CONTINUES TO FEEL CONSTIPATED. DR. UBRINA AT BEDSIDE TALKING W/ PT & DAUGHTER REGARDING ADMISSION. PT AGREES TO ADMISSION.
--- NOTE | 2018-12-08 04:31 | NUR ---
PANED PAGED PER ER MD ORDER.
--- NOTE | 2018-12-08 04:32 | NUR ---
GARY ISRAEL TALKING TO [facility] PT [facility]ION.
--- NOTE | 2018-12-08 04:46 | NUR ---
PT CONTINUES TO BE HYPERTENSIVE, REFUSING IVHL, RESP EVEN & UNLABORED, NAD NOTED. DR. URBINA NOTIFIED OF ELEVATED BP.
[2018-12-08] MEDS ORDERED: CLONIDINE HCL 0.1 MG TABLET ONE (04:50)
--- NOTE | 2018-12-08 04:58 | NUR ---
PT UNABLE TO RECALL HOME MEDICATIONS.
[2018-12-08] MEDS ORDERED: CLONIDINE HCL 0.1 MG TABLET PO ONE (05:00)
[2018-12-08] MEDS ORDERED: IV NS 0.9% 1,000 ML IV PRN (05:26)
--- NOTE | 2018-12-08 05:29 | NUR ---
PT RESTING COMFORTABLY IN BED W/ RESP EVEN & UNLABORED, NAD NOTED. REPORT GIVEN TO RACHANA CUMMINGS FOR NATALIE. PT ADMISSION TO [facility] [id number].
[2018-12-08] MEDS ORDERED: Z GUARD REMEDY 2 OZ OINT TP PRN (05:30)
[2018-12-08] MEDS ORDERED: CELECOXIB 100 MG CAPSULE PO PRN (05:30)
[2018-12-08] MEDS ORDERED: POLYETHYLENE GLYCOL 3350 17 GM POWD.PACK PO PRN (05:30)
[2018-12-08] MEDS ORDERED: MAGNESIUM HYDROXIDE 30 ML UDC PO PRN (05:30)
[2018-12-08] MEDS ORDERED: ONDANSETRON HCL/PF 4 MG/2 ML VIAL IVP PRN (05:30)
[2018-12-08] MEDS ORDERED: MAG HYDROX/AL HYDROX/SIMETH 30 ML UDC PO PRN (05:30)
[2018-12-08] MEDS ORDERED: CLONIDINE HCL 0.1 MG TABLET PO PRN (05:30)
[2018-12-08] MEDS ORDERED: ACETAMINOPHEN 325 MG TABLET PO PRN (05:30)
[2018-12-08] MEDS ORDERED: ACETAMINOPHEN 325 MG TABLET PO SCH (05:30)
--- NOTE | 2018-12-08 05:47 | NUR ---
PT TRANSFERRED VIA [facility] TO [facility] [id number].
--- NOTE | 2018-12-08 05:50 | NUR ---
MS RN ADMITTING NOTES RECEIVED PT FROM ER VIA [facility] IN STABLE CONDITION. PT A/O X3 AND ABLE TO MAKE NEEDS KNOWN. RESPIRATIONS EVEN AND UNLABORED WITH NO S/S OF ACUTE DISTRESS OR SOB NOTED. NO COMPLAINTS OF PAIN AT THIS TIME. PT WITHOUT IV ACCESS, PT REFUSED. ORIENTED PT TO UNIT AND ROOM. SAFETY MEASURES IN PLACE WITH BED IN LOWEST LOCKED POSITION WITH SIDE RAILS UP X2. CALL LIGHT WITHIN REACH. WILL CONTINUE TO MONITOR.
--- NOTE | 2018-12-08 07:00 | NUR ---
MS RN NOTES ENEMA NOT GIVEN YET PT WAS ON TOILET TRYING TO GO TO BATHROOM. WILL ENDORSE TO ONCOMING NURSE.
[2018-12-08] MEDS ORDERED: PANTOPRAZOLE 40 MG VIAL IV SCH (07:30)
--- NOTE | 2018-12-08 07:30 | NUR ---
RN MS NOTES PT AWAKE, ALERT AND ORIENTED, DENIES PAIN, ABLE TO WALK WITH SLOW STEADY GAIT, GOES BACK AND FORTH FROM BED TO BATHROOM TRYING TO HAVE A BOWEL MOVEMENT, EXPLAINED TO PT THAT SHE HAS TO BE IN BED FOR ENEMA ADMINISTRATION, VERBALIZED UNDERSTANDING, IV LINE STARTED, TOLERATED WELL.
[2018-12-08] MEDS ORDERED: NA PHOS,M-B/NA PHOS,DI-BA 1 EA ENEMA RC STA (07:53)
[2018-12-08 08:00] VITALS: BP 153/103
[2018-12-08] MEDS ORDERED: DOCUSATE SODIUM 100 MG CAPSULE PO SCH (09:00)
[2018-12-08] MEDS ORDERED: Medication Not On Formulary EA (Ceftriaxone Na/Dextrose,Iso (Ceftriaxone 1 Gm Piggyback) IV SCH (09:00)
[2018-12-08] MEDS: DOCUSATE SODIUM 100 MG CAPSULE PO SCH ×2 (09:00→16:44)
[2018-12-08] MEDS: LIDOCAINE 5% (PATCH) 1 EA PATCH TP SCH ×2 (09:00→09:16)
[2018-12-08] MEDS: FAMOTIDINE/PF INJ 20 MG/2 ML VIAL IV SCH ×2 (09:16→16:37)
--- NOTE | 2018-12-08 13:00 | NUR ---
RN MS NOTES PT IN BED, AWAKE, ALERT AND ORIENTED, NO COMPLAINT OF PAIN, PT ABLE TO HAVE BM, LARGE, WITH REGULAR CONSISTENCY, COLOR AND ODOR, PT VERBALIZED RELIEF, IVF INFUSING WELL, SEEN BY DR. DASH, STARTED ON SOFT DIET.
[2018-12-08 16:07] VITALS: BP 146/74
--- NOTE | 2018-12-08 18:35 | NUR ---
RN MS NOTES PT IN BED, RESTING, EASY TO AROUSE, ALERT AND ORIENTED, DENIES PAIN, NOT IN DISTRESS, IV FLUIDS INFUSING WELL, PT HAD 3X BM TODAY, VERBALIZED RELIEF, TOLERATING CURRENT DIET, NO NAUSEA OR VOMITING, ABLE TO AMBULATE TO THE BATHROOM WITH STANDBY ASSIST, ALL NEEDS ATTENDED.
--- NOTE | 2018-12-08 19:30 | NUR ---
RECEIVED PATIENT IN BED AWAKE. AO X 3, ABLE TO MADE NEEDS KNOWN. NO ACUTE DISTRESS NOTED. DENIES ANY PAIN AT THIS TIME. IV SITE PATENT, INTACT; IVF INFUSING ORDERED. SAFETY REMINDERS GIVEN. ON LOW BED WITH BILATERAL UPPER SIDE RAILS UP. CALL BECK WITHIN EASY REACH. WILL CONTINUE TO MONITOR.
[2018-12-08 20:00] VITALS: BP 137/77
--- NOTE | 2018-12-09 06:12 | NUR ---
PATIENT IN BED WITH EYES CLOSED, EASILY AROUSABLE. RESPIRATIONS EVEN. NO SIGNS OF PAIN NOTED. PATIENT REFUSED IVF AT NIGHT. NEEDS ATTENDED. URINE COLLECTED AND GIVEN TO LAB. KEPT CLEAN AND DRY. PRECAUTIONS AND COMFORT MEASURES IN PLACE. WILL GIVE REPORT TO DAY SHIFT FOR CONTINUITY OF CARE.
--- NOTE | 2018-12-09 07:45 | NUR ---
MS RN NOTES RECEIVED PATIENT IN BED AWAKE IN MODERATE HIGH BACK REST. A/O X 3, ABLE TO MAKE NEEDS KNOWN. NO ACUTE DISTRESS NOTED. IVF ON RIGHT WRIST #20 WITH NS @ 75ML/HR. PATENT AND INTACT. SAFETY MEASURES IN PLACE. BED IN LOW LOCKED POSITION WITH SIDE RAILS UP X 2. CALL LIGHT WITHIN EASY REACH. WILL CONTINUE TO MONITOR.
[2018-12-09] MEDS: DOCUSATE SODIUM 100 MG CAPSULE PO SCH (08:23)
[2018-12-09] MEDS: LIDOCAINE 5% (PATCH) 1 EA PATCH TP SCH (09:00)
[2018-12-09] MEDS: FAMOTIDINE/PF INJ 20 MG/2 ML VIAL IV SCH (09:00)
[2018-12-09 12:34] LABS: APPEARANCE,URINE SL CLOUDY (CLEAR); BILIRUBIN,URINE NEGATIVE (NEGATIVE); BLOOD, URINE 3+ Ery/uL (NEGATIVE); KETONES,URINE NEGATIVE (NEGATIVE); LEUKOCYTE ESTERASE ,URINE TRACE (NEGATIVE); NITRITE, URINE NEGATIVE (NEGATIVE); PROTEIN,URINE 2+ mg/dl (NEGATIVE); UGLUCOSE NEGATIVE (NEGATIVE); UROBILINOGEN,URINE 0.2 EU/dL (0.2)
[2018-12-09 12:36] LABS: COLOR,URINE STRAW (YELLOW)
[2018-12-09 13:07] LABS: RBC,URINE 51-80 /HPF (0-2)
[2018-12-09 13:08] LABS: BACTERIA,URINE Many /HPF (None Seen); SQUAMOUS EPITHELIAL CELL,UR Few /HPF (None Seen)
--- NOTE | 2018-12-09 14:55 | NUR ---
RN DISCHARGED NOTES PATIENT DISCHARGED IN STABLE CONDITION. A/O X 3. ABLE TO MAKE NEEDS KNOWN. V/S TAKEN, STABLE AND RECORDED. PATIENT'S IV REMOVED AND APPLIED PRESSURE DRESSINGS. REFUSED SKIN ASSESSMENT/PICTURES. NAME ARM BAND REMOVED. ALL BELONGINGS CHECKED AND SIGNED. HEALTH TEACHINGS/DISCHARGED INSTRUCTIONS GIVEN AND VERBALIZED UNDERSTANDING. PATIENT LEFT UNIT AT 1430 WITH NO ACUTE SIGNS OF DISTRESS. PATIENT WAS ASSISTED TO THE LOBBY BY HOSPITAL STAFF AND FAMILY. CHARGE NURSE MADE AWARE OF DISCHARGED.
== END 2018-12-09 14:30 | disposition home health service (06) | DRG 390 ==
LOC: ER 23:59 → MED 12-08 05:18
PROVIDERS: ADMIT Internal Medicine; ATTEND Internal Medicine
DX: K56.41 Fecal impaction (principal); I10 Essential (primary) hypertension; R32 Unspecified urinary incontinence; F03.90 Unspecified dementia, unspecified severity, without behavioral disturbance, psychotic disturbance, mood disturbance, and anxiety; M81.0 Age-related osteoporosis without current pathological fracture; I70.0 Atherosclerosis of aorta; Z96.643 Presence of artificial hip joint, bilateral; Z90.710 Acquired absence of both cervix and uterus; Z90.49 Acquired absence of other specified parts of digestive tract; Z82.49 Family history of ischemic heart disease and other diseases of the circulatory system; K44.9 Diaphragmatic hernia without obstruction or gangrene; Z98.890 Other specified postprocedural states; Z88.0 Allergy status to penicillin; Z88.2 Allergy status to sulfonamides; Z88.8 Allergy status to other drugs, medicaments and biological substances; M19.90 Unspecified osteoarthritis, unspecified site; Z87.81 Personal history of (healed) traumatic fracture; Z80.9 Family history of malignant neoplasm, unspecified
CPT/HCPCS: 36415; 80048-TC; 80076-TC; 81000-TC; 83690-TC; 85025-TC; 85730-TC; 87081-TC; 87086-TC; 87186-TC; 92526; 92611-TC; 97116-TC; 97530-TC; C9113; G0378; J3490; J7030; L0172

== ENCOUNTER 2018-12-09 20:34 | Emergency (ER) | payer MEDICARE, OTHER ==
[~2018-12-09] VITALS: Ht 152.4 cm; Wt 54.0 kg
--- NOTE | 2018-12-09 21:13 | NUR ---
BIB DAUGHTER FOR BLOOD IN URINE, BURNING SENSATION WHEN URINATE DISCHARGED THIS AM. ALSO C/O URINARY FREQUENCY AND URGENCY. PT IS AMBULATORY, AOX3, VSS, RR EVEN AND UNLABORED. DENIES FEVER, SOB, DIZZINESS, WEAKNESS, N/V. NO ACUTE DISTRESS NOTED. READY FOR EVAL.
[2018-12-09 22:00] LABS: APPEARANCE,URINE Clear (CLEAR); BILIRUBIN,URINE Negative (NEGATIVE); BLOOD, URINE Large Ery/uL (NEGATIVE); COLOR,URINE Amber (YELLOW); KETONES,URINE Negative (NEGATIVE); LEUKOCYTE ESTERASE ,URINE Small (NEGATIVE); NITRITE, URINE Negative (NEGATIVE); PROTEIN,URINE 100 mg/dl (NEGATIVE); UGLUCOSE Negative (NEGATIVE); UROBILINOGEN,URINE 0.2 EU/dL (0.2)
[2018-12-09 22:13] LABS: BACTERIA,URINE 1+ /HPF (None Seen); SQUAMOUS EPITHELIAL CELL,UR Few /HPF (None Seen)
[2018-12-09 22:17] LABS: BASOPHILS % (AUTO) 0.4 % (0.0-2.0); HEMATOCRIT 44 % (33-45); HEMOGLOBIN 14.7 g/dL (11.5-14.8); LYMPHOCYTES # (AUTO) 1.3 /CMM (0.8-4.8); LYMPHOCYTES % (AUTO) 12.6 % (20.0-44.0); MEAN CORPUSCULAR HGB CONC 34 g/dl (31.0-36.0); MEAN CORPUSCULAR VOLUME 89 fL (82-100); MONOCYTES # (AUTO) 0.7 /CMM (0.1-1.30); MONOCYTES % (AUTO) 7.1 % (2.0-12.0); NEUTROPHILS # (AUTO) 7.9 /CMM (1.8-8.9); NEUTROPHILS % (AUTO) 78.9 % (43.0-81.0); PLATELET COUNT (AUTO) 239 /CMM (150-450); RED BLOOD CELL COUNT(AUTO) 4.89 MIL/uL (4.0-5.2)
[2018-12-09 22:25] LABS: CALCIUM, SERUM 9.1 mg/dL (8.5-10.1); CREATININE 1.1 mg/dL (0.6-1.3); POTASSIUM 3.8 mmol/L (3.5-5.1)
[2018-12-09] MEDS ORDERED: NITROFURANTOIN/NITROFURAN MAC 100 MG CAPSULE PO ONE (22:30)
[2018-12-09 22:32] LABS: ALBUMIN 3.7 g/dL (3.4-5.0); BILIRUBIN,DIRECT 0.1 mg/dL (0.0-0.2); BILIRUBIN,TOTAL 0.6 mg/dL (0.2-1.0); TOTAL PROTEIN, SERUM 7.5 g/dL (6.4-8.2)
[2018-12-09] MEDS ORDERED: NITROFURANTOIN/NITROFURAN MAC 100 MG CAPSULE ONE (22:37)
[2018-12-09 23:13] VITALS: BP 165/92
--- NOTE | 2018-12-09 23:13 | NUR ---
Patient discharged to home in stable condition. Written and verbal after care instructions given. Patient verbalizes understanding of instruction.
== END 2018-12-09 23:13 | disposition home or self-care (01) ==
LOC: ER 20:41
DX: N39.0 Urinary tract infection, site not specified (principal); I10 Essential (primary) hypertension; Z88.0 Allergy status to penicillin; Z88.2 Allergy status to sulfonamides; Z88.8 Allergy status to other drugs, medicaments and biological substances; Z60.2 Problems related to living alone; Z79.899 Other long term (current) drug therapy
CPT/HCPCS: 36415; 80048-TC; 80076-TC; 81000-TC; 83690-TC; 85025-TC; 87086-TC